=== PATIENT | female | born 1980 | race Caucasian/White ===

== ENCOUNTER 2019-04-21 04:45 | Emergency (ER) | payer OTHER ==
[~2019-04-21] VITALS: Ht 162.6 cm; Wt 68.0 kg
[2019-04-21 04:45] VITALS: BP 117/81
[2019-04-21] MEDS ORDERED: NACL 0.9% 1,000 ML IV ONE (05:20)
[2019-04-21] MEDS ORDERED: LORazepam 1 MG TAB PO ONE (05:20)
[2019-04-21] MEDS ORDERED: LORazepam 2 MG/ML VIAL IVP ONE (06:25)
[2019-04-21 07:49] VITALS: BP 118/70
== END 2019-04-21 07:49 | disposition home or self-care (01) ==
LOC: MED 04:45
DX: F10.129 Alcohol abuse with intoxication, unspecified (principal)
CPT/HCPCS: 96374; 99283; J2060; J7030

== ENCOUNTER 2019-09-19 19:35 | Emergency (ER) | payer OTHER ==
[~2019-09-19] VITALS: Ht 162.6 cm; Wt 77.1 kg
[2019-09-19 19:35] VITALS: BP 102/61
--- NOTE | 2019-09-19 19:35 | NUR ---
PT BIBA BLS TO ER BED 04
--- NOTE | 2019-09-19 19:40 | NUR ---
PT 38 Y/O FEMALE BIBA ALS FOR C/O CHEST PAIN 12/30 X 4 DAYS. PT AAO X4. PERRL. PAIN IS NON RADIATING. PT ADMITS TO HAVING FEELINGS OF WITHDRAWL. PT STATES SHE HAS BEEN DRINKING 2 PINTS OF VODKA X 4 DAYS. NO N/V/D. NO TREMORS NOTED. "I FEEL ANXIETY AND I THINK I'M WITHDRAWING." PT RESPIRATIONS ARE EVEN AND UNLABORED. O2SAT @ 94 % ON RA. SKIN IS WARM AND DRY TO TOUCH. PT ON MONTIOR. MEDHX: ANXIETY ALLERGIES: NONE.
--- NOTE | 2019-09-19 19:40 | NUR ---
PT ADMITS TO HAVING TROUBLE WITH ALCOHOLISM. STATES "I HAVE BEEN DRINKING 2 PINTS OF VODKA FOR THE PAST FOUR DAYS. I FEEL LIKE IM WITHDRAWING NOW."
--- NOTE | 2019-09-19 20:01 | NUR ---
EKG PERFORMED AT BEDSIDE
[2019-09-19] MEDS ORDERED: DIAZEPAM 5 MG TAB PO STA (21:09)
[2019-09-19] MEDS ORDERED: MULTIVITAMIN-12 10 ML, THIAMINE 100 MG, MAGNESIUM SULFATE 50% 2,000 MG, FOLIC ACID 1 MG... IV STA ×5 (21:09)
[2019-09-19] MEDS ORDERED: MULTIVITAMIN-12 10 ML VIAL IV ONE (21:23)
[2019-09-19] MEDS ORDERED: MAG SULF 2000 MG/WATER PREMIX 0 ML IV ONE (21:29)
[2019-09-19] MEDS ORDERED: THIAMINE 200 MG/2 ML VIAL ONE (21:31)
[2019-09-19] MEDS ORDERED: FOLIC ACID 1 MG TAB ONE (21:32)
[2019-09-19] MEDS ORDERED: FOLIC ACID 5 MG/ML SYR ONE (21:39)
[2019-09-19] MEDS ORDERED: MULTIVITAMIN-12 10 ML in NACL 0.9% 1,000 ML IV ONE (22:14)
[2019-09-19] MEDS ORDERED: THIAMINE 200 MG/2 ML VIAL IM ONE (22:15)
[2019-09-19] MEDS ORDERED: FOLIC ACID 5 MG/ML SYR IM ONE (22:15)
--- NOTE | 2019-09-19 22:36 | NUR ---
PT RESTING IN BED. RESPIRATIONS ARE EVEN AND UNLABORED. SKIN IS WARM AND DRY TO TOUCH. PT RESPONDS TO VERBAL STIMULI. BED LOCKED AND IN LOWEST POSITION. PT ON MONITPR. VSS.
--- NOTE | 2019-09-19 23:44 | NUR ---
PT GETTING A RIDE HOME VIA UBER.
[2019-09-19 23:45] VITALS: BP 110/72
--- NOTE | 2019-09-19 23:45 | NUR ---
Patient discharged with v/s stable. Written and verbal after care instructions given and explained. Patient verbalized understanding. Ambulatory with steady gait. All questions addressed prior to discharge. Advised to follow up with PMD.
== END 2019-09-19 23:45 | disposition home or self-care (01) ==
LOC: MED 19:35
DX: K29.20 Alcoholic gastritis without bleeding (principal); R07.9 Chest pain, unspecified; F17.200 Nicotine dependence, unspecified, uncomplicated; F12.90 Cannabis use, unspecified, uncomplicated; F41.9 Anxiety disorder, unspecified
CPT/HCPCS: 81002; 81025; 93005; 99283; A9153; J3411; J3490; J3475